=== PATIENT | male | born 1945 | race Caucasian/White ===

== ENCOUNTER 2017-10-16 21:03 | Inpatient (IN) | payer OTHER ==
[~2017-10-16] VITALS: Ht 172.7 cm; Wt 97.8 kg
[2017-10-16 21:47] LABS: HEMATOCRIT 43.8 % (38.0-50.0); HEMOGLOBIN 15.1 G/DL (12.5-16.6); MCH 33.2 PG (29.0-34.0); MCHC 34.5 G/DL (30.0-36.0); MCV 96.3 FL (86-99); PLATELET COUNT 161 K/uL (156-360); RBC DIS.WIDTH-CV 12.9 % (11.8-14.6); RBC DIS.WIDTH-SD 45.8 % (39-53); RED BLOOD COUNT 4.55 M/uL (4.00-5.50); WHITE BLOOD COUNT 20.7 K/uL (4.1-10.2)
[2017-10-16 22:00] LABS: CHLORIDE 103 mEq/L (99-109); POTASSIUM 4.3 mEq/L (3.7-5.4); SODIUM 137 mEq/L (136-147)
[2017-10-16 22:02] LABS: GLUCOSE 139 mg/dL (70-99)
[2017-10-16 22:05] LABS: CREATININE 0.9 mg/dL (0.6-1.3); GFR ESTIMATE (CALCULATED) > 59 mL/min/ (58.99-99999)
[2017-10-16 22:06] LABS: UREA NITROGEN (BUN) 12 mg/dL (9-23)
[2017-10-17] MEDS ORDERED: PROAIR HFA8.5 GM IH (00:25)
[2017-10-17 03:24] VITALS: BP 134/79
[2017-10-17 08:27] VITALS: BP 120/62
[2017-10-17 08:59] LABS: BASOPHIL (%) 0.2 % (0-1); EOSINOPHIL (%) 0 % (0-5); HEMATOCRIT 39.8 % (38.0-50.0); HEMOGLOBIN 13.4 G/DL (12.5-16.6); IMMATURE GRANULOCYTE (%) 1.1 % (0.0-0.7); LYMPHOCYTE (%) 4.9 % (15-42); LYMPHOCYTE COUNT 1.2 K/uL (1.0-2.8); MCH 33.3 PG (29.0-34.0); MCHC 33.7 G/DL (30.0-36.0); MONOCYTE (%) 3.2 % (3-12); MONOCYTE COUNT 0.8 K/uL (0-0.8); NEUTROPHIL (%) 90.6 % (45-76); NEUTROPHIL COUNT 22.2 K/uL (1.8-6.4); RBC DIS.WIDTH-CV 13.2 % (11.8-14.6); RBC DIS.WIDTH-SD 47.8 % (39-53); RED BLOOD COUNT 4.02 M/uL (4.00-5.50); WHITE BLOOD COUNT 24.5 K/uL (4.1-10.2)
[2017-10-17 09:00] LABS: PLATELET COUNT 249 K/uL (156-360)
[2017-10-17 09:31] LABS: CHLORIDE 104 MEQ/L (99-109); CREATININE 0.9 MG/DL (0.6-1.3); GFR ESTIMATE (CALCULATED) > 59 mL/min/ (58.99-99999); GLUCOSE 142 mg/dL (70-99); POTASSIUM 4.5 MEQ/L (3.7-5.4); SODIUM 138 MEQ/L (136-147); UREA NITROGEN (BUN) 12 mg/dL (9-23)
[2017-10-17 12:05] VITALS: BP 149/80
[2017-10-17 15:03] VITALS: BP 141/75
[2017-10-17 19:52] VITALS: BP 146/71
[2017-10-17 23:37] VITALS: BP 144/78
[2017-10-18 04:44] VITALS: BP 134/72
[2017-10-18 06:09] LABS: HEMOGLOBIN 12.8 G/DL (12.5-16.6); MCH 32.3 PG (29.0-34.0); MCHC 32.8 G/DL (30.0-36.0); MCV 98.5 FL (86-99); PLATELET COUNT 254 K/uL (156-360); RBC DIS.WIDTH-CV 13.1 % (11.8-14.6); RBC DIS.WIDTH-SD 47.6 % (39-53); RED BLOOD COUNT 3.96 M/uL (4.00-5.50); WHITE BLOOD COUNT 24.1 K/uL (4.1-10.2)
[2017-10-18 06:34] LABS: CHLORIDE 105 MEQ/L (99-109); CREATININE 0.8 MG/DL (0.6-1.3); GFR ESTIMATE (CALCULATED) > 59 mL/min/ (58.99-99999); GLUCOSE 148 mg/dL (70-99); POTASSIUM 4.4 MEQ/L (3.7-5.4); SODIUM 136 MEQ/L (136-147); UREA NITROGEN (BUN) 17 mg/dL (9-23)
[2017-10-18 07:29] VITALS: BP 141/67
[2017-10-18 11:40] VITALS: BP 141/74
[2017-10-18 15:00] VITALS: BP 165/84
[2017-10-18 20:15] VITALS: BP 144/71
[2017-10-18 23:50] VITALS: BP 161/89
[2017-10-19 00:38] VITALS: BP 159/98
[2017-10-19 04:15] VITALS: BP 147/72
[2017-10-19 06:57] LABS: HEMATOCRIT 40.4 % (38.0-50.0); HEMOGLOBIN 13.3 G/DL (12.5-16.6); MCH 32.4 PG (29.0-34.0); MCHC 32.9 G/DL (30.0-36.0); MCV 98.5 FL (86-99); PLATELET COUNT 236 K/uL (156-360); RBC DIS.WIDTH-CV 13.2 % (11.8-14.6); WHITE BLOOD COUNT 16.9 K/uL (4.1-10.2)
[2017-10-19 07:07] VITALS: BP 154/83
[2017-10-19 11:04] VITALS: BP 136/74
[2017-10-19] MEDS ORDERED: CEFDINIR300 MG PO (14:32)
[2017-10-19] MEDS ORDERED: BENZONATATE100 MG PO (14:32)
[2017-10-19] MEDS ORDERED: ZITHROMAX500 MG PO (14:32)
[2017-10-19] MEDS ORDERED: PREDNISONE10 M1 PO (14:32)
[2017-10-19] MEDS ORDERED: PROBIOTIC1 EAC1 PO (14:54)
== END 2017-10-19 16:45 | disposition home or self-care (01) | DRG 871 ==
LOC: EME → EDBD 21:03 → EME 21:03 → 2EASTP 10-17 01:21 → EDOF 10-17 01:21 → 4EAST 10-17 01:21 → ENRESERV 10-17 01:23 → 4EAST 10-17 03:10 → ENRESERV 10-18 23:02 → 2EASTP 10-19 00:23
PROVIDERS: Emergency Medicine; Hospitalist
DX: A41.9 Sepsis, unspecified organism (principal); J18.9 Pneumonia, unspecified organism; J96.01 Acute respiratory failure with hypoxia; J44.1 Chronic obstructive pulmonary disease with (acute) exacerbation; J44.0 Chronic obstructive pulmonary disease with (acute) lower respiratory infection; G47.33 Obstructive sleep apnea (adult) (pediatric); E66.9 Obesity, unspecified; Z66 Do not resuscitate; Z87.891 Personal history of nicotine dependence; Z68.32 Body mass index [BMI] 32.0-32.9, adult; Z99.81 Dependence on supplemental oxygen
CPT/HCPCS: 71046; 71275; 80048; 82948; 83605; 85025; 85027; 87040; 87070; 87205; 87449; 87502; 90686; 93005; 94010; 94640; 94799; 99202; 99281; 99285; J0456; J0696; J1100; J1644; J1956; J2405; J2920; J3475; J7030; J7512; J7644; S0028